=== PATIENT | female | born 1940 | race American Indian/Alaskan Native ===

== ENCOUNTER 2017-09-21 11:07 | Outpatient (CLI) | payer MEDICARE ==
--- NOTE | 2017-09-21 12:54 | XRay Report ---
Left fifth finger 3 views: History: Left pinky. Pain in left finger. Findings: There is soft tissue swelling noted at the proximal interphalangeal joint fifth finger. There is marked narrowing noted of the proximal interphalangeal joint with cystic areas in the subarticular region suggestive severe degenerative changes. No evidence of acute fracture. 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
== END 2017-09-21 11:08 | disposition home or self-care (01) ==
LOC: XRAY 11:07
PROVIDERS: ATTEND Family Medicine
DX: M19.042 Primary osteoarthritis, left hand (principal)